=== PATIENT | female | born 1970 | race Caucasian/White ===

== ENCOUNTER → 2017-12-17 | Outpatient (CLI) | payer OTHER ==
[~2017-12-17] MED LIST: DOXYCYCLINE HYC20 MG PO; FEOSOL PO; GLUCOSAMINE PO; LEVOCETIRIZINE PO; LOSARTAN-HCTZ PO; METROGEL-VAGINA70 GM TOP; METRONIDAZOLE250 MG PO; PANTOPRAZOLE SO40 MG PO; prilosec PO
--- NOTE | 2017-12-18 08:42 | Diagnostic Imaging Report ---
PROCEDURE:ABDOMINAL ULTRASOUND COMPARISON:None. INDICATIONS:ABDOMINAL PAIN FINDINGS: Liver: Measures 12.6 cm. Increased hepatic parenchymal echogenicity. No focal mass. Main portal vein: Measures 0.7 cm. Hepatopedal flow. Gallbladder: Single echogenic focus measuring up to 1.3 cm with shadowing and twinkle artifact. No evidence of distension, wall thickening, or pericholecystic fluid. Common Bile Duct: Measures 0.3 cm. No echogenic filling defect. Sonographic Silverio's sign: Negative. Right kidney: Measures up to 11.2 cm. No solid or cystic mass, echogenic calculi, or hydronephrosis. Normal parenchymal echogenicity. Left kidney: Measures up to 11.1 cm. No solid or cystic mass, echogenic calculi, or hydronephrosis. Normal parenchymal echogenicity. Spleen: Measures up to 7.3 cm with unremarkable appearance. Pancreas: The visualized portions of the pancreas are normal. Inferior vena cava: Normal. Aorta: Normal. Ascites: None. CONCLUSION: Cholelithiasis without sonographic evidence of cholecystitis. Hepatic steatosis. Dictated by: HERNANDO MEDEROS M.D. on 12/18/2017 at 8:50 Electronically approved by: HERNANDO MEDEROS M.D. on 12/18/2017 at 8:50
== END ==
LOC: US 08:53
PROVIDERS: ATTEND Internal Medicine Gastroenterology
DX: R10.84 Generalized abdominal pain (principal)
CPT/HCPCS: 76700

== ENCOUNTER → 2017-12-26 | Day surgery (SDC) | payer OTHER ==
[2017-12-23 09:31] LABS: BASOPHILS % 0.4 % (0.0-1.0); EOSINOPHILS # (AUTO) 0.2 (0.0-0.4); EOSINOPHILS % 2.2 % (0.0-6.0); HEMATOCRIT 37.7 % (34.2-44.1); HEMOGLOBIN 12.4 g/dL (12.0-16.0); LYMPHOCYTES # (AUTO) 2.6 (1.0-3.2); LYMPHOCYTES % 38.2 % (18.0-39.1); MEAN CORPUSCULAR HEMOGLOBIN 29.7 pg (28-32); MEAN CORPUSCULAR HGB CONC 32.9 g/dL (31-35); MEAN CORPUSCULAR VOLUME 90.2 fL (81-99); MONOCYTES # (AUTO) 0.5 (0.2-0.8); MONOCYTES % 7.5 % (4.4-11.3); NEUTROPHILS # (AUTO) 3.6 (2.1-6.9); NEUTROPHILS % 51.6 % (38.7-80.0); PLATELET COUNT 321 x10e3/uL (140-360); RED BLOOD COUNT 4.18 x10e6/uL (3.6-5.1); RED CELL DISTRIBUTION WIDTH 14.1 % (11.7-14.4)
[2017-12-23 09:49] LABS: ANION GAP 12.9 mmol/L (8-16); BLOOD UREA NITROGEN 11 mg/dL (7-26); BUN/CREATININE RATIO 18 (6-25); CALCIUM 8.6 mg/dL (8.4-10.2); CARBON DIOXIDE 26 mmol/L (22-29); CHLORIDE 103 mmol/L (98-107); CREATININE, SERUM 0.62 mg/dL (0.57-1.11); EST GLOMERULAR FILTRATION RATE > 60 ML/MIN (60-); GLUCOSE 104 mg/dL (74-118); POTASSIUM 3.9 mmol/L (3.5-5.1); SODIUM 138 mmol/L (136-145)
[~2017-12-26] MED LIST changes: +FENTANYL CITRATE/PF 100MCG/2 ML INJ ONE; +LIDOCAINE HCL 2% LOCAL INJ 5 ML SDV VIAL INJ ONE; +MIDAZOLAM HCL 2 MG/2 ML VIAL ONE; +PROPOFOL IV EMULSION 10 MG/ML 50 ML VIAL ONE
--- OUTSIDE RECORDS SUMMARY | 2017-12-26 07:45 | XMS REPORT ---
Author Author [facility] Address Unknown Phone Unavailable Care Team Providers Care Sewing Inspector Name Role Phone VLAD GARCIA Unavailable Unavailable Problems This patient has no known problems. Allergies, Adverse Reactions, Alerts This patient has no known allergies or adverse reactions. Medications This patient has no known medications. Results Test Description Test Time Test Comments Text Results Atomic Results Result Comments US ABDOMEN COMPLETE 2017-12-18 08:50:00 [place] [id number] Patient Name: SHIRA VENEGAS MR #: [id number] : 1970 Age/Sex: 47/F Req #: [id number] Adm Physician: Ordered by: VLAD GARCIA MD Report #: [id number] Location: Room/Bed: Procedure: [id number] US/US ABDOMEN COMPLETE Exam Date: 12/17/17 Exam Time: 0904 REPORT STATUS: Signed PROCEDURE: ABDOMINAL ULTRASOUND COMPARISON: None. INDICATIONS: ABDOMINAL PAIN FINDINGS: Liver: Measures 12.6 cm. Increased hepatic parenchymal echogenicity. No focal mass. Main portal vein: Measures 0.7 cm. Hepatopedal flow. Gallbladder: Single echogenic focus measuring up to 1.3 cm with shadowing and twinkle artifact. No evidence of distension, wall thickening, or pericholecystic fluid. Common Bile Duct: Measures 0.3 cm. No echogenic filling defect. Sonographic Silverio's sign: Negative. Right kidney: Measures up to 11.2 cm. No solid or cystic mass, echogenic calculi, or hydronephrosis. Normal parenchymal echogenicity. Left kidney: Measures up to 11.1 cm. No solid or cystic mass, echogenic calculi, or hydronephrosis. Normal parenchymal echogenicity. Spleen: Measures up to 7.3 cm with unremarkable appearance. Pancreas: The visualized portions of the pancreas are normal. Inferior vena cava: Normal. Aorta: Normal. Ascites: None. CONCLUSION: Cholelithiasis without sonographic evidence of cholecystitis. Hepatic steatosis. Dictated by: HERNANDO MEDEROS M.D. on 12/18/2017 at 8:50 Electronically approved by: HERNANDO MEDEROS M.D. on 12/18/2017 at 8:50 Dictated By: HERNANDO MEDEROS MD [id number] Transcribed By: DONNIE on 12/18/17 0850 COPY TO: VLAD GARCIA MD
[2017-12-26 10:10] VITALS: BP 120/79
--- NOTE | 2017-12-26 10:27 | Operative Report ---
DATE OF PROCEDURE: December 26, 2017 REFERRING PHYSICIAN: Dr. Ayo Maya PROCEDURE PERFORMED: Esophagogastroduodenoscopy with biopsies. INDICATIONS FOR EGD: Upper abdominal pain and history of acid reflux. MEDICATION: Patient was done under MAC. Please see anesthesiologist's note. PROCEDURE: With the patient in the left lateral decubitus position, the flexible fiberoptic Olympus gastroscope was introduced into the esophagus under direct visualization without any difficulty. There was some patchy erythema noted in the distal esophagus. Scope was then advanced with ease into the stomach. Mucosa overlying the antrum and the body revealed some patchy intense erythema and low-grade to moderate edema, and biopsies were obtained and sent to stain for H. pylori. Pylorus appeared to be of normal contour and shape. It was intubated with ease. The scope was advanced all the way to the 2nd portion of the duodenum. The scope was then withdrawn slowly and biopsies were obtained from the proximal 2nd portion to rule out sprue. The scope was then withdrawn back into the stomach and retroflexed. Mucosa overlying the fundus appeared to be with within normal limits. The cardia also was within normal limits. The scope was then straightened out. The stomach was decompressed. The scope was subsequently withdrawn. Patient tolerated the procedure well. IMPRESSION 1. Distal esophagitis. 2. Small sliding hiatal hernia. 3. Gastritis, biopsied. Biopsies sent to stain for Helicobacter pylori. 4. Rule out sprue. PLAN: Follow up histology. Initiate Protonix 40 mg 1 p.o. a.c. b.i.d. Job#: [id number] PA cc:AYO MAYA DO
== END | disposition home or self-care (01) ==
LOC: OR 07:43
PROVIDERS: ATTEND Internal Medicine Gastroenterology
DX: K21.0 Gastro-esophageal reflux disease with esophagitis (principal); K44.9 Diaphragmatic hernia without obstruction or gangrene; K29.50 Unspecified chronic gastritis without bleeding; K31.9 Disease of stomach and duodenum, unspecified; I10 Essential (primary) hypertension; J30.9 Allergic rhinitis, unspecified; Z01.810 Encounter for preprocedural cardiovascular examination; Z01.812 Encounter for preprocedural laboratory examination
CPT/HCPCS: 36415; 43239; 80048; 81025; 85025; 93005; J2001; J2250

== ENCOUNTER 2018-01-19 06:39 | Observation (INO) | payer OTHER ==
[2018-01-13 13:23] LABS: BASOPHILS % 0.4 % (0.0-1.0); EOSINOPHILS # (AUTO) 0.1 (0.0-0.4); EOSINOPHILS % 1.7 % (0.0-6.0); HEMATOCRIT 39.2 % (34.2-44.1); HEMOGLOBIN 12.9 g/dL (12.0-16.0); LYMPHOCYTES # (AUTO) 3.1 (1.0-3.2); LYMPHOCYTES % 37.7 % (18.0-39.1); MEAN CORPUSCULAR HEMOGLOBIN 29.8 pg (28-32); MEAN CORPUSCULAR HGB CONC 32.9 g/dL (31-35); MEAN CORPUSCULAR VOLUME 90.5 fL (81-99); MONOCYTES # (AUTO) 0.6 (0.2-0.8); MONOCYTES % 6.7 % (4.4-11.3); NEUTROPHILS # (AUTO) 4.4 (2.1-6.9); NEUTROPHILS % 53.4 % (38.7-80.0); PLATELET COUNT 339 x10e3/uL (140-360); RED BLOOD COUNT 4.33 x10e6/uL (3.6-5.1); RED CELL DISTRIBUTION WIDTH 13.8 % (11.7-14.4)
[2018-01-13 14:17] LABS: ALANINE AMINOTRANSFERASE 25 IU/L (0-55); ALBUMIN 4.1 g/dL (3.5-5.0); ALBUMIN/GLOBULIN RATIO 1.1 (0.8-2.0); ALKALINE PHOSPHATASE 116 IU/L (40-150); BLOOD UREA NITROGEN 10 mg/dL (7-26); BUN/CREATININE RATIO 15 (6-25); CALCIUM 9.8 mg/dL (8.4-10.2); CARBON DIOXIDE 29 mmol/L (22-29); CHLORIDE 105 mmol/L (98-107); CREATININE, SERUM 0.67 mg/dL (0.57-1.11); EST GLOMERULAR FILTRATION RATE > 60 ML/MIN (60-); GLUCOSE 97 mg/dL (74-118); SODIUM 141 mmol/L (136-145)
[~2018-01-19] VITALS: Ht 149.9 cm; Wt 84.5 kg
[~2018-01-19 06:39] MED LIST changes: -FENTANYL CITRATE/PF 100MCG/2 ML INJ ONE; -LIDOCAINE HCL 2% LOCAL INJ 5 ML SDV VIAL INJ ONE; -MIDAZOLAM HCL 2 MG/2 ML VIAL ONE; -PROPOFOL IV EMULSION 10 MG/ML 50 ML VIAL ONE
[2018-01-19] MEDS ORDERED: CEFOXITIN SOD 1 GM VIAL ONE (07:12)
[2018-01-19] MEDS ORDERED: BUPIVACAINE 0.25%/EPI 30ML SDV INJ ONE (09:06)
[2018-01-19] MEDS ORDERED: FENTANYL CITRATE/PF 100MCG/2 ML INJ ONE ×2 (10:28→15:25)
[2018-01-19] MEDS ORDERED: HYDROMORPHONE 2MG/ML 2 MG/ML ML ONE (11:14)
[2018-01-19] MEDS ORDERED: MORPHINE SULFATE INJ 4 MG/ML INJ ONE (11:36)
[2018-01-19] MEDS ORDERED: ONDANSETRON HCL INJ 2 MG/ML VIAL ONE ×2 (12:20→14:13)
[2018-01-19] MEDS ORDERED: METOCLOPRAMIDE HCL 10 MG/2ML VIAL ONE (12:42)
--- NOTE | 2018-01-19 13:22 | Operative Report ---
DATE OF PROCEDURE: January 19, 2018 PREOPERATIVE DIAGNOSIS: Symptomatic cholelithiasis. POSTOPERATIVE DIAGNOSIS: Symptomatic cholelithiasis. OPERATIVE PROCEDURE: Laparoscopic cholecystectomy. RAT TRAPPER: None. ANESTHESIA: General endotracheal. INDICATIONS: A 47-year-old female with a history of recurrent epigastric pain and nausea and pain radiation to the back. Ultrasound showed gallstones. Patient consented for laparoscopic cholecystectomy. Attendant risks discussed. PROCEDURE FINDINGS: Gallstones in the neck of the gallbladder. DESCRIPTION OF PROCEDURE: Patient was brought to the OR intubated. Abdomen prepped with alcohol and draped in a sterile fashion. An infraumbilical incision is made and a 10-mm port inserted. Insufflation begun. Under direct vision, other port sites placed in the midepigastric and right upper quadrant. Gallbladder is mildly inflamed. Fundus retracted in a cephalad direction. Neck of the gallbladder retracted laterally. With blunt and sharp dissection, we isolated the cystic artery and cystic duct, and noted the junction with common bile duct before triple clipping the cystic artery and dividing between clips. The cystic duct was also dissected out and it is triple clipped proximally 7 mm away from the junction with the bile duct and cystic duct divided between clips. Gallbladder detached from liver with cautery and taken out through the umbilical incision. Operative field is irrigated. Hemostasis achieved. All ports removed under direct vision. Fascia closure with 0 Vicryl. Skin closed with subcuticular stitch. Patient is extubated and transported to the recovery room. Estimated blood loss 3 mL. Job#: [id number]
[2018-01-19] MEDS ORDERED: SEVOFLURANE INHAL SOLN 250 ML PEN BTL ONE (14:13)
[2018-01-19] MEDS ORDERED: DEXAMETHASONE SOD PHOS INJ 4 MG/ML VIAL ONE (14:13)
[2018-01-19] MEDS ORDERED: ROCURONIUM BROMIDE 10 MG/ML 5ML VIAL ONE (14:13)
[2018-01-19] MEDS ORDERED: LIDOCAINE HCL 2% LOCAL INJ 5 ML SDV VIAL INJ ONE (14:13)
[2018-01-19] MEDS ORDERED: PROPOFOL IV EMULSION 10 MG/ML 20 ML VIAL ONE (14:13)
[2018-01-19] MEDS ORDERED: ACETAMINOPHEN 1000 MG/100 ML IV ONE (14:13)
[2018-01-19] MEDS ORDERED: NEOSTIGMINE 5 MG/5ML SYR ONE (14:13)
[2018-01-19] MEDS ORDERED: GLYCOPYRROLATE INJ 1MG/ 5 ML SYR ONE (14:13)
[2018-01-19] MEDS ORDERED: MIDAZOLAM HCL 2 MG/2 ML VIAL ONE (15:25)
[2018-01-19 15:37] VITALS: BP 127/63
[2018-01-19 16:36] VITALS: BP 127/63
[2018-01-19 19:21] LABS: HEMOGLOBIN 12.2 g/dL (12.0-16.0); LYMPHOCYTES # (AUTO) 0.8 (1.0-3.2); LYMPHOCYTES % 9.2 % (18.0-39.1); MEAN CORPUSCULAR VOLUME 91.1 fL (81-99); MONOCYTES # (AUTO) 0.1 (0.2-0.8); MONOCYTES % 0.9 % (4.4-11.3); NEUTROPHILS # (AUTO) 8.2 (2.1-6.9); NEUTROPHILS % 89.6 % (38.7-80.0); PLATELET COUNT 320 x10e3/uL (140-360); RED BLOOD COUNT 4.06 x10e6/uL (3.6-5.1); RED CELL DISTRIBUTION WIDTH 13.8 % (11.7-14.4)
[2018-01-19 19:43] LABS: ALANINE AMINOTRANSFERASE 32 IU/L (0-55); ALBUMIN 3.8 g/dL (3.5-5.0); ALBUMIN/GLOBULIN RATIO 1.1 (0.8-2.0); ALKALINE PHOSPHATASE 114 IU/L (40-150); ANION GAP 14.8 mmol/L (8-16); BLOOD UREA NITROGEN 7 mg/dL (7-26); BUN/CREATININE RATIO 10 (6-25); CALCIUM 9.3 mg/dL (8.4-10.2); CARBON DIOXIDE 23 mmol/L (22-29); CHLORIDE 101 mmol/L (98-107); EST GLOMERULAR FILTRATION RATE > 60 ML/MIN (60-); GLUCOSE 133 mg/dL (74-118); POTASSIUM 3.8 mmol/L (3.5-5.1); SODIUM 135 mmol/L (136-145)
[2018-01-19 20:00] VITALS: BP 135/72
[2018-01-19] MEDS: MORPHINE SULFATE 2 MG/ML SYR IV PRN (21:44)
[2018-01-19] MEDS: ONDANSETRON HCL INJ 2 MG/ML VIAL IV PRN (21:45)
[2018-01-20] VITALS: BP 122/70
[2018-01-20 04:00] VITALS: BP 138/77
[2018-01-20] MEDS: ONDANSETRON HCL INJ 2 MG/ML VIAL IV PRN ×2 (04:59→09:25)
[2018-01-20] MEDS: MORPHINE SULFATE 2 MG/ML SYR IV PRN ×2 (04:59→09:25)
[2018-01-20 08:35] VITALS: BP 142/73
[2018-01-20 09:17] VITALS: BP 142/73
== END 2018-01-20 11:09 | disposition home or self-care (01) ==
LOC: OR 06:39 → PACU V 15:21 → MED/SURG 15:37
PROVIDERS: ADMIT Surgery; ATTEND Surgery
DX: K80.10 Calculus of gallbladder with chronic cholecystitis without obstruction (principal); I10 Essential (primary) hypertension; D64.9 Anemia, unspecified; Z82.49 Family history of ischemic heart disease and other diseases of the circulatory system; K21.9 Gastro-esophageal reflux disease without esophagitis
CPT/HCPCS: 36415 ×2; 47562; 80053 ×2; 81025; 85025 ×2; 88304; 93005; G0378 ×2; J0131; J0694; J1100; J1170; J2001; J2250; J2270 ×3; J2405 ×2; J2704; J2765; J3490